=== PATIENT | female | born 1955 | race Caucasian/White ===

== ENCOUNTER 2017-07-05 06:12 | Day surgery (SDC) | payer OTHER ==
[2017-07-04 10:58] LABS: HEMATOCRIT 41.5 % (36.0-48.0); HEMOGLOBIN 13.5 g/dL (12-16); MCH 29.3 pg (26.0-34.0); MCHC 32.5 g/dL (31.0-37.0); MCV 90.2 fL (80.0-100.0); MEAN PLATELET VOLUME 8.6 fL (7.4-10.4); RBC 4.6 10x6/uL (4.00-5.40); RDW 14.1 % (11.5-14.5); WBC 7.6 10x3/uL (4.8-10.8)
[~2017-07-05 06:12] MED LIST: BUPROPION HCL150 M1 PO; CYMBALTA60 MG PO; HYDROCHLOROTH12.5 M1 PO; HYDROXYZINE HCL10 MG PO; K-TAB10 MEQ; LIDODERM 5 %1 PATCH TRANSDERM; MAGNESIUM MALATE; MULTIPLE VITAMI1 TA1 PO; NUCYNTA50 MG PO; PRILOSEC10 M1 PO; TOPAMAX50 MG PO; VOLTAREN100 GM TOPICAL; ZESTRIL40 MG PO
[2017-07-05 09:33] VITALS: BP 147/87; BMI 31.0
--- NOTE | 2017-07-05 14:03 | NUR ---
1345- PT BACK TO ROOM. LEFT FOOT DRESSING INTACT, NO PAIN AT THIS TIME. FULL LIQUIDS OFFERED. 1400- PT SITTING UP WITH HOB ELEVATED. TOLERATING FULL LIQUIDS. AT BEDSIDE. VSS. WILL MONITOR.
--- NOTE | 2017-07-05 15:28 | NUR ---
1435- IV D/C'D, PT TOLERATED. CATHETER INTACT. SILK TAPE USED DUE TO ADHESIVE IRRITATION. 1450- DISCHARGE INSTRUCTIONS COMPLETED. PAPERWORK SIGNED. PT VERBALIZED UNDERSTANDING. 1455- PT DISCHARGED VIA WHEELCHAIR WITH .
--- NOTE | 2017-08-07 10:04 | OP ---
PATIENT NAME: MITCHEL DE LA GARZA MEDICAL RECORD: [id number] :57 LOCATION:D[facility] ADMISSION DATE: SURGEON: JUNIOR DUCKWORTH DATE OF OPERATION: 07/05/2017 SURGEON: Junior Duckworth DPM. PREOPERATIVE DIAGNOSES: 1. Hammertoe deformity, third toe, left foot. 2. Hammertoe deformity, fourth toe, left foot. 3. Ganglionic cyst third toe, left foot. POSTOPERATIVE DIAGNOSES: 1. Hammertoe deformity, third toe, left foot. 2. Hammertoe deformity, fourth toe, left foot. 3. Ganglionic cyst third toe, left foot. PROCEDURES: 1. Arthrodesis, third toe, left foot. 2. Arthrodesis, fourth toe, left foot. 3. Excision of ganglionic cyst, third, left foot. ANESTHESIA: Local with monitored anesthesia care. HEMOSTASIS: Pneumatic ankle tourniquet inflated to 250 mmHg. ESTIMATED BLOOD LOSS: Minimal. MATERIALS: A 3-0 Vicryl and two 0.045 inch K-wires. INJECTABLES: A 20 cc 0.5% bupivacaine plain. The patient has longstanding history of pain associated with the above-mentioned toe deformities as well as a mass on the left foot. She has tried wider shoes to no avail. We have discussed the proposed procedures. Risks and benefits were discussed. Complications were reviewed. Her questions were answered. She was appropriately consented for the above-mentioned procedures. The patient was brought in the operating room and placed on the operating table in supine position. A timeout was called with Dr. Duckworth, who identified the patient, the surgical site, and the surgery to be performed. Once appropriate anesthesia was obtained, the foot was prepped and draped in the usual aseptic manner. The pneumatic ankle tourniquet was inflated to 250 mmHg on the well-padded left ankle. PROCEDURE NUMBER 1: Arthrodesis, third toe, left foot. Attention was directed to the dorsal aspect of the third toe of the left foot where a 3-cm linear incision was made. This incision was carried deep to soft tissue with care being taken to retract all vital neurovascular structures. All bleeders were cauterized along the way. The extensor tendon was then transected from medial to lateral at the level of the proximal interphalangeal joint. All soft tissue attachments were freed from the head of the proximal phalanx and the OPERATIVE REPORT [id number] MITCHEL DE LA GARZA base of the middle phalanx. Utilizing a sagittal saw, the head of the proximal phalanx and the base of the middle phalanx were removed. Next, utilizing one 0.045 inch K-wire was placed across the arthrodesis site. The surgical site was then irrigated with copious amounts of normal sterile saline via bulb syringe. The periosteum and extensor tendon were reapproximated and coapted utilizing 3-0 Vicryl. The subQ was reapproximated and coapted using 4-0 Vicryl. The skin was reapproximated and coapted utilizing 4-0 nylon. PROCEDURE NUMBER 2: Arthrodesis fourth toe, left foot. The exact same procedure that was performed in procedure number 1 (arthrodesis, third toe, left foot) was performed on the fourth toe of left foot without exception. PROCEDURE NUMBER 3: Excision of mass, third toe, left foot. Attention was directed to the plantar surface of the third toe of the left foot where a soft tissue mass was identified. A 2-cm linear incision was made directly over the plantar surface of the left third toe. This incision was carried deep to soft tissue with care being taken to retract all vital neurovascular structures. The deep fascial layer was incised and a ganglionic cyst was identified. The cyst was then freed from all soft tissue attachments and passed from the field. It was sent to pathology. The surgical site was then irrigated with copious amounts of normal sterile saline via bulb syringe. The surgical site was then investigated for any remaining pathological tissue and none was noted. The subQ tissues were reapproximated and coapted using 4-0 Vicryl. The skin was reapproximated and coapted using 4-0 nylon. A dressing consisting of Xeroform, 4 x 4's, Kerlix, and Flip bandage was applied to the left foot. The pneumatic ankle tourniquet was deflated and capillary refill time is immediate to all toes of the left foot. The patient will be discharged home with instructions to ice and elevate the left foot. She was dispensed a postop shoe to offload the foot. She was provided with my cell phone number for any after hour difficulties. She will follow up with us next week and there were no complications with this procedure. 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
== END 2017-07-05 14:55 | disposition home or self-care (01) ==
LOC: D.OPS 06:12
PROVIDERS: Podiatrist
DX: M20.42 Other hammer toe(s) (acquired), left foot (principal); M67.472 Ganglion, left ankle and foot; Z01.812 Encounter for preprocedural laboratory examination